=== PATIENT | female | born 1995 | race Caucasian/White ===

== ENCOUNTER → 2016-03-18 | Outpatient (REF) | payer OTHER ==
[2016-03-18 18:57] LABS: MICROSCOPIC INDICATED? MAN YES (NO)
[2016-03-18 18:58] LABS: RBC, URINE 40-50 /hpf (0-3); WBC, URINE TNTC /hpf (0-3)
[2016-03-18 18:59] LABS: BACTERIA, URINE LARGE AMOUNT; HYALINE CAST, URINE NONE SEEN /lpf (0-1); MICROSCOPIC EXAM PERFORMED; SQUAMOUS EPITHELIAL CELL URINE MOD AMOUNT /hpf (SMALL AMT)
== END | disposition home or self-care (01) ==
LOC: M LAB REF 16:54
PROVIDERS: ATTEND Physician Assistant
DX: N39.0 Urinary tract infection, site not specified (principal)